=== PATIENT | male | born 1975 | race Caucasian/White ===

== ENCOUNTER 2023-01-28 11:10 | Day surgery (SDC) | payer BC ==
[2023-01-26 12:26] VITALS: BMI 48.7
--- NOTE | 2023-01-27 17:06 | HP ---
HISTORY AND PHYSICAL CHIEF COMPLAINT: Base of tongue lesion. HISTORY OF PRESENT ILLNESS: The patient is a pleasant 47-year-old male who was recently referred to my office for evaluation of a soreness along the left lateral border of his tongue. His symptoms have been there for approximately 1 to 2 months. The patient is a nonsmoker. He has a history of acid reflux and currently is on Prilosec. He denies any referred otalgia. He does not use any tobacco products. He denies any open sores in his mouth. His primary care doctor ordered a CT scan with contrast of the neck and it was completely negative for any possible lesions. However, the patient points to the left side of his tongue. He also points to the left area of his neck near the left angle of the mandible as the location of his discomfort and pain. He denies any actual dysphagia. PAST MEDICAL HISTORY: Reveals he has allergies to penicillin. PREVIOUS SURGERIES: Include tonsillectomy, adenoidectomy, cholecystectomy, and clavicle surgery following trauma. CURRENT MEDICATIONS: Include: 1. Buspar. 2. [place]. 3. Gabapentin. 4. Prilosec (this has been changed to Protonix). 5. Duloxetine. 6. Atorvastatin. 7. Hydrochlorothiazide (HCTZ) and losartan. REVIEW OF SYSTEMS: Reveals CARDIOVASCULAR: Positive for hypertension. METABOLIC/ENDOCRINE: Positive for hypercholesterolemia. GASTROINTESTINAL: Positive for GERD (gastroesophageal reflux disorder). MUSCULOSKELETAL: Positive for osteoarthritis. The remainder of the review of systems is unremarkable. PHYSICAL EXAMINATION: GENERAL: The patient is a pleasant 47-year-old male who was alert and cooperative. HEENT: The patient is normocephalic. Tympanic membranes are normal. The canal skin is quite dry and scaly, suggestive of eczematous external otitis. The patient has been complaining of itchy ears. Tympanic membrane middle ear spaces are free of any fluid or infection. Pupils are equal, round, and reactive to light and accommodation. Extraocular movements within normal limits. Intranasal examination reveals moderate to severe septal deviation with compensatory hypertrophy of the inferior turbinates and a moderate amount of mucus on the mucous membranes and draining down the posterior pharynx. Examination of the floor of the mouth and also examination and deep palpation of the anterior 2/3 of the tongue does not reveal any mucosal lesions or any palpable masses within the tongue itself. The floor of the mouth is unremarkable. Indirect laryngoscopy using headlight mirror does not reveal any suspicious lesions of the right or left piriform sinus or of the larynx itself. Palpation of the neck is negative for any neck masses or lymphadenopathy. Tenderness is as noted near the left angle of the mandible. Remainder of the head and neck exam including cranial nerves 2 through 12 are within normal limits. CHEST/CARDIOVASCULAR: Both lung mcbride are clear to percussion and auscultation. Patient is in regular sinus rhythm. S1 and S2 are present without any murmurs, S3s, or S4s. Peripheral pulses are bilaterally symmetrical and within normal limits. ABDOMEN: There is no evidence of any masses, megaly, or tenderness. The abdomen is soft. SKIN: Unremarkable. MUSCULOSKELETAL: All within normal limits. NEUROLOGICAL: All within normal limits. RECTAL: Deferred at this time because the patient has done on a regular basis at his family physician's office. The remainder of physical exam is unremarkable. IMPRESSION: Base of tongue mass. PLAN: The patient is scheduled to undergo a suspension microlaryngoscopy with possible biopsy of base of tongue mass under general anesthesia in a.m. Attention RNs in the pre-surgical area: I have not ordered any pre-surgical prophylactic antibiotics for this patient. If the pharmacy department sends any pre- surgical prophylactic antibiotics to the pre-surgical area for this patient, that order should be cancelled, and the medication should be returned to the pharmacy department. Also make sure that the patient's account is credited appropriately. I have not ordered any other medications for this patient. I have discussed the risks, benefits and alternative therapies for the above-mentioned procedure and for both sedation/analgesia as well as necessary blood product administration, if indicated, as they pertain to this patient. The patient has indicated his understanding and acceptance of the risks and procedures discussed. MMODL / IJN: [id number] /
[~2023-01-28 11:10] MED LIST: DEXAMETHASONE SOD PHOSPHATE 4 MG/ML 1 ML VIAL IV ONE; HYDROmorphone 0.5 MG/0.5 ML SYRINGE IVP PRN; LACTATED RINGERS 1,000 ML IV SCH; LIDOCAINE 1% (10MG/ML) FOR IV START INTRADERMA PRN; ONDANSETRON 4 MG/2 ML VIAL IVP ONE; Pre Op ABX Message 1 EACH MISC MISCELLANE ONE
[2023-01-28 11:43] VITALS: TEMP 97
[2023-01-28 12:06] LABS: Basophils % (A) 0 %; Eosinophils # (A) 0.1 k/uL (0-0.7); Eosinophils % (A) 2 %; HCT 39.3 % (39.0-53.0); HGB 13.9 gm/dL (13.0-17.5); Lymphocytes # (A) 1.6 k/uL (1.0-4.8); Lymphocytes % (A) 31 %; MCH 31.5 pg (25.0-35.0); MCHC 35.4 g/dL (31.0-37.0); MCV 88.8 fL (80.0-100.0); Mean Platelet Volume 7.6; Monocytes # (A) 0.2 k/uL (0-1.0); Monocytes % (A) 4 %; Neutrophils # (A) 3.1 k/uL (1.3-7.7); Neutrophils % (A) 62 %; Platelet Count 131 k/uL (150-450); RBC 4.43 m/uL (4.30-5.90); RDW 13.4 % (11.5-15.5); WBC 5.1 k/uL (3.8-10.6)
[2023-01-28] MEDS ORDERED: ACETAMINOPHEN IV (For NPO) 1,000 MG/100 ML VIAL ONE (12:20)
[2023-01-28] MEDS ORDERED: MIDAZOLAM 2 MG/2 ML VIAL ONE (12:20)
[2023-01-28] MEDS ORDERED: PROPOFOL 10 MG/ML 20 ML VIAL IV ONE (12:20)
[2023-01-28] MEDS ORDERED: fentaNYL (PF) 50 MCG/ML 2 ML AMP ONE (12:20)
[2023-01-28] MEDS ORDERED: LIDOCAINE 2% INJ 20 MG/ML (2 ML VIAL) ONE (12:20)
[2023-01-28] MEDS ORDERED: SUCCINYLCHOLINE CHLORIDE 200 MG/10 ML VIAL IV ONE (12:20)
[2023-01-28] MEDS ORDERED: METOPROLOL TARTRATE 5 MG/5 ML VIAL IVP ONE (13:46)
[2023-01-28 14:29] VITALS: BP 146/89; PULSE 74; RESP 16
--- NOTE | 2023-01-31 03:23 | OP ---
OPERATIVE REPORT DATE OF SERVICE : 01/28/2023 PREOPERATIVE DIAGNOSIS: Left base of tongue mass. POSTOPERATIVE DIAGNOSIS: Left base of tongue mass, final pathology pending. ANESTHESIA: General. PROCEDURE PERFORMED: Suspension microlaryngoscopy with multiple blind biopsies of the left base of tongue. COMPLICATIONS: None. ESTIMATED BLOOD LOSS: Less than 5 mL. DESCRIPTION OF PROCEDURE: The patient was placed on the operating table in supine position. After uneventful induction and endotracheal intubation, satisfactory general anesthesia was obtained. Next, the patient was draped in usual customary fashion. Initially, the patient's base of tongue was extended and was deeply palpated in its entirety. No suspicious lumps, bumps, or masses were noted on the deep palpation. Following this, the laryngoscope was passed into the patient's oropharynx and the right and left piriform sinus. Base of tongue, vallecula, epiglottis were all found to be free of any suspicious lesions. Next, the tip of the laryngoscope was introduced into the laryngeal introitus. The Lewy apparatus was then attached to the handle of the laryngoscope. The laryngoscope was then suspended on the patient's chest. Next, using the Zeiss operating microscope and under direct visualization, examination of the laryngeal structures revealed no suspicious lesions. The laryngoscope was then positioned into the left base of tongue, where multiple blind biopsies were taken using a pair of up-biting microlaryngeal forceps. The specimens were sent in formalin to the pathology department for permanent sectioning. The patient was given 10 mg of Decadron intraoperatively to reduce any postoperative edema of the tongue. At this point, the procedure was terminated. There were no intraoperative complications. Estimated blood loss was less than 5 mL. Final pathology is pending. The patient tolerated the procedure well and was returned to recovery room in satisfactory condition. MMODL / IJN: [id number] /
== END 2023-01-28 14:45 | disposition home or self-care (01) ==
LOC: OR 11:10
PROVIDERS: ATTEND Otolaryngology
DX: K14.9 Disease of tongue, unspecified (principal); I10 Essential (primary) hypertension; E78.5 Hyperlipidemia, unspecified; K21.9 Gastro-esophageal reflux disease without esophagitis; Z90.49 Acquired absence of other specified parts of digestive tract; Z90.89 Acquired absence of other organs; Z79.899 Other long term (current) drug therapy; Z98.890 Other specified postprocedural states
CPT/HCPCS: 88305; 84132; 85025; 31536; J2250; J0330; J1100; J2405; J3010; J0131; J2704; J2001

== ENCOUNTER → 2023-12-23 | Outpatient (CLI) | payer BC ==
--- NOTE | 2023-12-29 12:18 | CT ---
EXAMINATION TYPE: CT soft tissue neck w con CT DLP: 739 mGycm, Automated exposure control for dose reduction was used. DATE OF EXAM: 12/23/2023 12:06 PM COMPARISON: None. CLINICAL INDICATION:Male, 48 years old with history of R22.1 LOCALIZED SWELLING, MASS AND LUMP, NECK; PHH, Localized swelling, enlarged lymph nodes, sore throat. TECHNIQUE: Standard enhanced CT of the neck following intravenous administration of 100 cc of Isovue 300. Axial sections with coronal and sagittal reformats were obtained. FINDINGS: Brain: Visualized portions are grossly unremarkable. Orbits: Unremarkable Sinuses: Grossly unremarkable. Suprahyoid Neck: The oropharynx, oral cavity, parapharyngeal and retropharyngeal spaces are clear and symmetric. The nasopharynx is unremarkable. Infrahyoid Neck: The larynx, hypopharynx, and supraglottic area are clear and symmetric. Parotid Glands: Unremarkable. Submandibular Glands: Unremarkable. Musculoskeletal: No acute osseous pathology. Lymph nodes: No enlarged lymph nodes measuring greater than 1 cm short axis. Vascular structures: Visualized major arteries are patent without evidence of aneurysm. Thoracic Inlet/airway: Airway is patent. The lung apices are clear. Soft tissues/Thyroid: Thyroid and remainder of the soft tissues are unremarkable. Other: none. IMPRESSION No definite evidence for significant abnormality. No enlarged lymph nodes identified.
== END | disposition home or self-care (01) ==
LOC: RADCTMAIN 11:39
PROVIDERS: ATTEND Otolaryngology
DX: R22.1 Localized swelling, mass and lump, neck (principal); R59.9 Enlarged lymph nodes, unspecified
CPT/HCPCS: 70491; Q9967